=== PATIENT | female | born 1980 | race Caucasian/White ===

== ENCOUNTER 2023-04-13 13:55 | Emergency (ER) | payer OTHER, SELFPAY ==
[2023-04-13] VITALS (20 sets, daily range): BP systolic 84–156; BP diastolic 15–83; BMI 34.1
--- NOTE | 2023-04-13 14:45 | ED.GENMED ---
History of Present Illness
<Jennifer Melchor MACHINE FOLDER - Last Filed: 04/15/23 15:23>
General
Chief Complaint: Substance Abuse
Source: patient
Exam Limitations: none
Time Seen by Provider: 04/13/23 14:11
Nursing documentation reviewed up to this point in time: agreed with
Travel History
Have you had any contact with someone who has COVID-19?: No
Do you have any symptoms of coronavirus? Fever > 100 degrees, chills, cough, shortness of breath, sore throat, loss of taste or smell, muscle aches, or headache?: No
History of Present Illness
History of Present Illness:
42-year-old female with history of HTN, hep C, depression, substance abuse presents stating she wants inpatient care for drug rehab. Her drug of choice is fentanyl, she denies any other drug or alcohol use. She states after being clean for a year
her boyfriend just got out of [facility] and provided her with fentanyl. She injected 1 bag at 9 AM, she also used yesterday and states prior to that she was clean for a year.
She states she goes to the clinic for methadone 150 mg daily, she missed her appointment today because her ride could not make it on time so she missed today's dose and tomorrow's dose as they are closed on Sundays and usually gives that dose today
for tomorrow.
She has generalized body aches. Denies chest pain or trouble breathing. Denies abdominal pain. She states in the past week she has been urinating more frequently at night. Denies dysuria.
Past History
<Jennifer Melchor MACHINE FOLDER - Last Filed: 04/15/23 15:23>
Past History
ED Past Medical History: Psychiatric (History of drug abuse/ methadone maintenance program) and Other (Hepatitis C)
ED Past Surgical History:
Social History
Tobacco: Smoker
Alcohol: None
Drug: IVDA
Personal: Single
Living: with family (she and 10 yo daughter live with her boyfriend's mother, boyfriend's sister just moved in 1 month ago, disrupting the home. Boyfriend just out of long term, provided her Fentanyl)
Employment: Employed
Family History
Family History: Other (Noncontributory)
Review of Systems
<Jennifer Melchor, MACHINE FOLDER - Last Filed: 04/15/23 15:23>
Review of Systems
Allergies reviewed?: Yes
All Other Systems: ROS reviewed and negative except as documented in HPI and ROS
Constitutional: Denies fever or chills
EENT: Denies sore throat or runny nose
Respiratory: Denies trouble breathing
Cardiac: Denies chest pain or diaphoresis
ABD/GI: Denies abdominal pain, nausea, vomiting or diarrhea
: Reports frequency; Denies dysuria, difficulty voiding or urgency
Musculoskeletal: Reports other (General body aches)
Skin: Reports no symptoms
Neurological: Reports no symptoms
Psychiatric: Reports depression and anxiety; Denies suicidal
Phy Exam
<Jennifer Melchor, MACHINE FOLDER - Last Filed: 04/15/23 15:23>
Physical Exam
Physical Exam:
GENERAL: No acute distress. A&Ox3.
CONSTITUTIONAL: Afebrile.
EYES: PERRL, conjunctivae normal
Neck: Supple
ENMT: moist mucus membranes, Pharynx nl
RESPIRATORY: Regular respirations, nonlabored, lungs clear.
CARDIOVASCULAR: Regular rate and rhythm, no murmurs, no rubs.
GI: Soft, nontender, normal BS
MUSCULOSKELETAL: Moves with ease. Well perfused.
SKIN: Warm, dry, pink
PSYCH: Tearful mood and affect. Well kept, interactive and appropriate
NEUROLOGIC: Awake, alert and oriented. No focal neurological deficits
Scores
<Jennifer Melchor, MACHINE FOLDER - Last Filed: 04/15/23 15:23>
COW Clinical Opiate Withdrawal Scale
Resting Pulse Rate: 80 or below
Sweating-over past 30min not from room temp or activity: No report of chills or flushing
Restlessness-observation during assessment: Able to sit still
Pupil Size: Pupils pinned or normal size for room light
Bone or Joint Aches: Mild diffuse discomfort
Runny Nose or Tearing-not accounted for by cold/allergies: Not present
GI Upset-over last 30min: No GI Symptoms
Tremor-observation of outstretched hands: No tremor
Yawning-observation during assessment: No yawning
Anxiety or Irritability: None
Gooseflesh Skin: Skin is smooth
Score: 1
Withdrawal Severity: Minimal Withdrawal
<Rachelle Mccain, DO - Last Filed: 04/14/23 22:46>
COW Clinical Opiate Withdrawal Scale
Score: 1
Withdrawal Severity: Minimal Withdrawal
<Thanh Weiss, DO - Last Filed: 04/14/23 13:54>
COW Clinical Opiate Withdrawal Scale
Score: 1
Withdrawal Severity: Minimal Withdrawal
Course
<Jennifer Melchor, MACHINE FOLDER - Last Filed: 04/15/23 15:23>
Orders/Labs/Results
Orders:
Orders
04/13/23 14:43
Test Result ONCE
04/13/23 14:44
0.9% Sodium Chloride 1000 ml [Nss] 1,000 ml IV BOLUS
04/13/23 14:54
Complete Blood Count/With Diff Urgent
Comprehensive Metabolic Panel Urgent
Fentanyl, Urine Urgent
HCG, Serum Qualitative Screen Urgent
[place] Urgent
Urinalysis Reflex To Culture Urgent
Date Specimen was Collected: 04/13/23
Time Specimen was Collected: 14:50
Urine Drug Abuse Screen Urgent
Date Specimen was Collected: 04/13/23
Time Specimen was Collected: 14:50
Urine Microscopic Reflex Cult Urgent
Urine Culture Urgent
[facility] Source: U
Specimen Description:
Date Specimen was Collected: 04/13/23
Time Specimen was Collected: 14:50
04/14/23 Breakfast
Regular
At Your Request: Full Participation
Does patient need a safe tray?: No
04/14/23 08:00
Methadone HCl [Methadone 100 mg/10 ml] 150 mg PO DAILY
Abnormal Lab Results
04/13/23
14:54
Abs Immat Gran (auto) 0.1 H 10^3/uL
(0-0.05)
Immature Gran % 0.7 H %
(0-0.5)
Lymphocytes % 18.8 L %
(20.5-51.1)
Sodium 133 L mmol/L
(135-145)
Glucose 101 H mg/dl
(70-99)
AST 74 H U/L
(14-36)
ALT 45 H U/L
(0-35)
Alkaline Phosphatase 235 H U/L
(38-126)
Ur Occult Blood Reflex 1+ A
(Negative)
Leukocyte Esterase Rfl Trace A
(Negative)
Urine RBC 3-6 A /HPF
(0-2)
Urine Bacteria (Reflex) Moderate A
(Negative)
Urine Methadone Screen Positive H
(Negative)
Urine Fentanyl Screen Positive H
(Negative)
U Benzodiazepines Scrn Positive H
(Negative)
[place] < 0.2 L mmol/L
(0.6-1.2)
Urine Cocaine Screen Positive H
(Negative)
04/13/23 14:54
04/13/23 14:54
Vital Signs
Initial and Last Documented VS:
Initial Vital Signs
Temp Pulse Resp BP Pulse Ox
98.2 F 56 16 117/72 99
04/13/23 14:00 04/13/23 14:00 04/13/23 14:00 04/13/23 14:00 04/13/23 14:00
Last Documented Vital Signs
Temp Pulse Resp BP Pulse Ox
98.2 F 46 0 137/78 95
04/13/23 14:00 04/14/23 13:15 04/13/23 15:03 04/14/23 13:00 04/14/23 00:30
Field Producer consulted with Physician
Field Producer consulted with physician?: Yes
Name of Physician Consulted: Maverick
<Rachelle Mccain, DO - Last Filed: 04/14/23 22:46>
Orders/Labs/Results
Orders:
Orders
04/13/23 14:43
Test Result ONCE
04/13/23 14:44
0.9% Sodium Chloride 1000 ml [Nss] 1,000 ml IV BOLUS
04/13/23 14:54
Complete Blood Count/With Diff Urgent
Comprehensive Metabolic Panel Urgent
Fentanyl, Urine Urgent
HCG, Serum Qualitative Screen Urgent
[place] Urgent
Urinalysis Reflex To Culture Urgent
Date Specimen was Collected: 04/13/23
Time Specimen was Collected: 14:50
Urine Drug Abuse Screen Urgent
Date Specimen was Collected: 04/13/23
Time Specimen was Collected: 14:50
Urine Microscopic Reflex Cult Urgent
Urine Culture Urgent
[facility]ILESH Source: U
Specimen Description:
Date Specimen was Collected: 04/13/23
Time Specimen was Collected: 14:50
04/14/23 Breakfast
Regular
At Your Request: Full Participation
Does patient need a safe tray?: No
04/14/23 08:00
Methadone HCl [Methadone 100 mg/10 ml] 150 mg PO DAILY
Abnormal Lab Results
04/13/23
14:54
Abs Immat Gran (auto) 0.1 H 10^3/uL
(0-0.05)
Immature Gran % 0.7 H %
(0-0.5)
Lymphocytes % 18.8 L %
(20.5-51.1)
Sodium 133 L mmol/L
(135-145)
Glucose 101 H mg/dl
(70-99)
AST 74 H U/L
(14-36)
ALT 45 H U/L
(0-35)
Alkaline Phosphatase 235 H U/L
(38-126)
Ur Occult Blood Reflex 1+ A
(Negative)
Leukocyte Esterase Rfl Trace A
(Negative)
Urine RBC 3-6 A /HPF
(0-2)
Urine Bacteria (Reflex) Moderate A
(Negative)
Urine Methadone Screen Positive H
(Negative)
Urine Fentanyl Screen Positive H
(Negative)
U Benzodiazepines Scrn Positive H
(Negative)
[place] < 0.2 L mmol/L
(0.6-1.2)
Urine Cocaine Screen Positive H
(Negative)
04/13/23 14:54
04/13/23 14:54
Vital Signs
Initial and Last Documented VS:
Initial Vital Signs
Temp Pulse Resp BP Pulse Ox
98.2 F 56 16 117/72 99
04/13/23 14:00 04/13/23 14:00 04/13/23 14:00 04/13/23 14:00 04/13/23 14:00
Last Documented Vital Signs
Temp Pulse Resp BP Pulse Ox
98.2 F 46 0 137/78 95
04/13/23 14:00 04/14/23 13:15 04/13/23 15:03 04/14/23 13:00 04/14/23 00:30
<Thanh Weiss, DO - Last Filed: 04/14/23 13:54>
Orders/Labs/Results
Orders:
Orders
04/13/23 14:43
Test Result ONCE
04/13/23 14:44
0.9% Sodium Chloride 1000 ml [Nss] 1,000 ml IV BOLUS
04/13/23 14:54
Complete Blood Count/With Diff Urgent
Comprehensive Metabolic Panel Urgent
Fentanyl, Urine Urgent
HCG, Serum Qualitative Screen Urgent
[place] Urgent
Urinalysis Reflex To Culture Urgent
Date Specimen was Collected: 04/13/23
Time Specimen was Collected: 14:50
Urine Drug Abuse Screen Urgent
Date Specimen was Collected: 04/13/23
Time Specimen was Collected: 14:50
Urine Microscopic Reflex Cult Urgent
Urine Culture Urgent
NILESH Source: U
Specimen Description:
Date Specimen was Collected: 04/13/23
Time Specimen was Collected: 14:50
04/14/23 Breakfast
Regular
At Your Request: Full Participation
Does patient need a safe tray?: No
04/14/23 08:00
Methadone HCl [Methadone 100 mg/10 ml] 150 mg PO DAILY
Abnormal Lab Results
04/13/23
14:54
Abs Immat Gran (auto) 0.1 H 10^3/uL
(0-0.05)
Immature Gran % 0.7 H %
(0-0.5)
Lymphocytes % 18.8 L %
(20.5-51.1)
Sodium 133 L mmol/L
(135-145)
Glucose 101 H mg/dl
(70-99)
AST 74 H U/L
(14-36)
ALT 45 H U/L
(0-35)
Alkaline Phosphatase 235 H U/L
(38-126)
Ur Occult Blood Reflex 1+ A
(Negative)
Leukocyte Esterase Rfl Trace A
(Negative)
Urine RBC 3-6 A /HPF
(0-2)
Urine Bacteria (Reflex) Moderate A
(Negative)
Urine Methadone Screen Positive H
(Negative)
Urine Fentanyl Screen Positive H
(Negative)
U Benzodiazepines Scrn Positive H
(Negative)
[place] < 0.2 L mmol/L
(0.6-1.2)
Urine Cocaine Screen Positive H
(Negative)
04/13/23 14:54
04/13/23 14:54
Vital Signs
Initial and Last Documented VS:
Initial Vital Signs
Temp Pulse Resp BP Pulse Ox
98.2 F 56 16 117/72 99
04/13/23 14:00 04/13/23 14:00 04/13/23 14:00 04/13/23 14:00 04/13/23 14:00
Last Documented Vital Signs
Temp Pulse Resp BP Pulse Ox
98.2 F 46 0 137/78 95
04/13/23 14:00 04/14/23 13:15 04/13/23 15:03 04/14/23 13:00 04/14/23 00:30
<Jennifer Melchor MACHINE FOLDER - Last Filed: 04/15/23 15:23>
MDM/Problems Addressed
Differential Diagnosis Includes:
opioid withdrawal, need for Methadone
MDM/Problems Addressed:
42-year-old female with history of HTN, hep C, depression, substance abuse presents stating she wants inpatient care for drug rehab. Her drug of choice is fentanyl, she denies any other drug or alcohol use. She states after being clean for a year
her boyfriend just got out of [facility] and provided her with fentanyl. She injected 1 bag at 9 AM, she also used yesterday and states prior to that she was clean for a year.
She states she goes to the clinic for methadone 150 mg daily, she missed her appointment today because her ride could not make it on time so she missed today's dose and tomorrow's dose as they are closed on Sundays and usually gives that dose today
for tomorrow.
She has generalized body aches. Denies chest pain or trouble breathing. Denies abdominal pain. She states in the past week she has been urinating more frequently at night. Denies dysuria.She has generalized body aches. Denies chest pain or
trouble breathing. Denies abdominal pain. She states in the past week she has been urinating more frequently at night. Denies dysuria.
NAD, tearful
COWS score 1
In reviewing old records her last visit here was 09/18 to 10/19/2021 for cellulitis. At that time she was discharged on methadone 125 mg p.o. daily
Awaiting callback from [facility]
04/13/2023 1559 PM
CBC normal
CMP: mild elevation of liver enzymes
hCG negative
UA: No sign of infection
[place] level less than 0.2, less than therapeutic
04/13/2023 2042 PM
The [facility] personnel just called back and will be in to evaluate patient.
Patient remains somnolent but arousable, stable
04/13/2023 2148 PM
Edin from the [facility] is here speaking with the patient.
Case discussed with Dr. Mccain who will assume care from this point.
No indication of opioid withdrawal
<Thanh Weiss DO - Last Filed: 04/14/23 13:54>
*Critical Care Note
Total Time (30-74mins, 75-104mins- exclusive of procedures): Not Applicable
<Thanh Weiss DO - Last Filed: 04/14/23 13:54>
Update Note
Update Note:
Patient seen by Dontae plummer. Patient seen by case management. Living place arranged by case management. Dontae jimenezs to follow and place in rehab
ED Attending Note
<Jennifer Melchor MACHINE FOLDER - Last Filed: 04/15/23 15:23>
-
Portions of this chart may have been created with voice recognition software.� Occasional wrong word or��sound alike� substitutions may have occurred due to the inherent limitations of voice recognition software.
<Rachelle Mccain DO - Last Filed: 04/14/23 22:46>
ED Attending Note
I performed the substantive portion of visit, reviewed & personally made and approve the management plan that is documented in note by myself or VIRGIL.: Yes
ED Attending Note:
42-year-old woman with longstanding history of opioid use disorder, maintained on methadone 150 mg daily.
She admits to recent relapse, IV fentanyl use, partying with an old acquaintance and missed her methadone dose this morning, April 13.
She presents voluntarily requesting inpatient detox treatment and has been interviewed by [facility] it disaster recovery manager.
[facility] it disaster recovery manager has calls out to several inpatient recovery centers and plans to touch base with their admissions departments Saturday.
Patient agreeable to remain in the ED and will plan for her usual morning methadone dose, 150 mg on Saturday morning.
It is currently after 10 PM April 13.
No evidence of opioid withdrawal currently. No need for methadone dose now.
Will continue to observe in the ED.
Discharge Plan
Departure
Patient Disposition: Home (Routine Discharge)
Date of Disposition: 04/14/23
Time of Disposition: 06:09
Patient with high blood pressure during this ER visit?: No
Discharge Problem:
Opioid use disorder, severe, on maintenance therapy, OUD with recent relapse
Instructions: Drug Misuse and Addiction (DC)
Prescriptions:
No Action
hydrochlorothiazide 12.5 mg Tablet
12.5 mg PO DAILY
methadone [Methadose] 100 MG/10 ML concentrate
125 mg PO DAILY
Rx Instructions:
09/18/21: dose confirmation 125 mg with [facility] [phone] [place].
Saw patient 09/16 for 125 mg dose, then clinic is closed on Sundays so a take home dose of 125 mg was given to patient.
amoxicillin-pot clavulanate 875-125 mg tablet
1 tab PO BID 12 Days Qty: 23 0RF
Rx Instructions:
first dose evening 09/20/21
Referrals:
Eduardo Croft MD [Family Provider] -
Interventions
Interventions:
*Risk Screen - Suicide Last Done: 04/13/23 14:00
*General Assessment Last Done: 04/13/23 14:00
*Neglect/Abuse Screening Last Done: 04/13/23 14:00
ED- Fall Risk Assessment Last Done: 04/13/23 14:00
*ED COVID-19 Vaccine History Last Done: 04/13/23 14:00
*Nursing Disposition Last Done: 04/14/23 14:01
ED-Psychological Assessment Last Done: 04/13/23 15:57
Discharge Date and Time
Discharge Date/Time: 04/14/23 14:06
[2023-04-13] MEDS: NSS 1000 IV (14:59)
[2023-04-13 15:21] LABS: Red Blood Cell Count 4.24 10^6/uL (4.20-5.40); White Blood Cell Count 8.1 10^3/uL (4.8-10.8)
[2023-04-13 15:22] LABS: % Basophils 0.4 % (0-2); % Eosinophils 1.1 % (0-6); % Immature Granulocytes 0.7 % (0-0.5); % Lymphocytes 18.8 % (20.5-51.1); % Monocytes 4.5 % (1.7-9.3); % Neutrophils 74.5 % (42.2-75.2); Absolute Eosinophils 0.1 10^3/uL (0-0.7); Absolute Immature Granulocytes 0.1 10^3/uL (0-0.05); Absolute Lymphocytes 1.5 10^3/uL (1.2-3.4); Absolute Monocytes 0.4 10^3/uL (0.1-0.6); Absolute Neutrophils 6.1 10^3/uL (1.4-6.5); Hematocrit 37.8 % (37.0-47.0); Hemoglobin 13.1 g/dL (12.0-16.0); Mean Corp Hgb Conc. 34.7 g/dL (33.0-37.0); Mean Corpuscular Hgb 30.9 pg (27.0-31.0); Mean Corpuscular Volume 89.2 fL (81.0-99.0); Mean Platelet Volume 9.7 fL (7.4-10.4); Nucleated Red Blood Cells % 0 %; Platelet Count 247 10^3/uL (130-400); Red Cell Dist. Width 12.8 % (11.5-14.5)
[2023-04-13 15:26] LABS: Urine Albumin Negative (Neg - Trace); Urine Bilirubin Negative (Negative); Urine Character Slightly Cloudy (Clear); Urine Color Yellow; Urine Glucose Negative (Negative); Urine Ketone Negative (Negative); Urine Leukocyte Trace (Negative); Urine Nitrite Negative (Negative); Urine Occult Blood 1+ (Negative); Urine Specific Gravity 1.015 (<1.030); Urine Urobilinogen Negative (Neg - 1+); Urine pH 6.5 (5.0-9.0)
[2023-04-13 15:34] LABS: ALT (SGPT) 45 U/L (0-35); AST (SGOT) 74 U/L (14-36); Albumin 3.9 g/dl (3.5-5.0); Alkaline Phosphatase 235 U/L (38-126); Blood Urea Nitrogen 14 mg/dl (7-17); Calcium 8.5 mg/dl (8.4-10.2); Carbon Dioxide 27 mmol/L (22-30); Chloride 102 mmol/L (98-107); Estimated Creatinine Clearance 121 ml/min; Glucose 101 mg/dl (70-99); Lithium < 0.2 mmol/L (0.6-1.2); Potassium 4.9 mmol/L (3.5-5.1); Sodium 133 mmol/L (135-145); Total Bilirubin 0.7 mg/dl (0.2-1.3); Total Protein 7.7 g/dl (6.3-8.2); eGFR > 60.00
[2023-04-13 15:38] LABS: HCG, Serum Qualitative Screen Negative
[2023-04-13 15:52] LABS: Urine Bacteria Moderate (Negative); Urine Squamous Cell >30 /LPF (Few); Urine White Cell 0-2 /HPF (0-5)
[2023-04-13 17:39] LABS: Benzodiazepines Positive (Negative); Methadone Positive (Negative)
[2023-04-13 17:40] LABS: Amphetamines Negative (Negative); Barbiturates Negative (Negative); Buprenorphine Negative (Negative); Cocaine Positive (Negative); Marijuana Negative (Negative); Methamphetamines Negative (Negative); Opiates Negative (Negative); Phencyclidine Negative (Negative); Tricyclic Antidepressants Negative (Negative)
[2023-04-13 18:08] LABS: Fentanyl, Urine Positive (Negative)
--- NOTE | 2023-04-13 19:00 | EDRN ---
report received, patient is sleeping and we are waiting on [facility] to call back
--- NOTE | 2023-04-13 20:52 | EDRN ---
[facility] is suppose to come in and see patient to work on placement, patient is sleeping
--- NOTE | 2023-04-13 21:51 | EDRN ---
[facility] is at bedside working on assessment
--- NOTE | 2023-04-13 22:15 | EDRN ---
Patient electrical control assembler leonardo asking to use restroom and about methadone dose, as of right now will not be giving methadone does per provider, will continue to monitor
--- NOTE | 2023-04-13 23:53 | EDRN ---
Patient provided with sandwich, [facility] will attempt to find placement in the morning, nothing for tonight, patient aware
[2023-04-14] VITALS (26 sets, daily range): BP systolic 105–151; BP diastolic 58–94
--- NOTE | 2023-04-14 02:40 | EDRN ---
Patient provided with another cup of hot tea, resting comfortably,vss
--- NOTE | 2023-04-14 10:23 | CM ---
Addendum entered by Gisel Sanchez RN 04/14/23 13:55:
[facility] is able to assist with temporary housing at the [facility]. CM will provide Lyft ride.
Addendum entered by Gisel Sanchez RN 04/14/23 13:01:
TIA spoke with Lalit from [facility] with demographics. Lalit will call back with possible assistance with housing.
Addendum entered by Gisel Sanchez RN 04/14/23 12:12:
CM received call from Lalit at [facility]. He will call CM back with further information.
Addendum entered by Gisel Sanchez RN 04/14/23 10:24:
Patient does not have a place to stay tonight. CM called [facility] to assist with temporary housing.
Original Note:
TIA spoke with Edin from [facility]. He stated that he will have difficulty placing patient. Patient needs to follow up with her Methadone Clinic in [place] to confirm dose. She will follow up with the following resources tomorrow for placement:
[facility]
[phone]
[facility]
[phone]
[place]
[phone]
[facility]
[phone]
[2023-04-14] MEDS: METHADONE 100 MG/10 ML 150 MG PO (10:43)
--- NOTE | 2023-04-15 16:12 | CM ---
ED Consult to CM to contact Edin from [facility] to assist with referral paperwork for this patient, related to ED visit 04/13-04/14.
Spoke with [facility] (cell [phone], fax [phone]); this patient was accepted by [facility], [facility] and they are requesting documentation as to whether patient received Methadone on Sun 04/14 while she was here.
Read to Edin the ED Doc notes stating Methadone ordered. Sent clinicals including demographics, ED Physician notes and Methadone order to [facility] fax [phone] - sent via [employer]ax.
== END 2023-04-14 14:06 | disposition home or self-care (01) ==
LOC: EMR 13:55
PROVIDERS: Registered Nurse; EMERGENCY PHYSICIAN Emergency Medicine; FAMILY PHYSICIAN Internal Medicine
DX: F11.23 Opioid dependence with withdrawal (principal); F17.200 Nicotine dependence, unspecified, uncomplicated; I10 Essential (primary) hypertension; Z86.19 Personal history of other infectious and parasitic diseases
CPT/HCPCS: 99283; 80053; 80178; 80306; 80307; 81003; 81015; 84703; 85025; 87086

== ENCOUNTER 2023-12-28 13:04 | Emergency (ER) | payer OTHER, SELFPAY ==
[2023-12-28 13:06] VITALS: BP 135/88
--- NOTE | 2023-12-28 13:14 | EDRN ---
Pt states she has a blister on cuticle of L thumb w/ redness of proximal portion of thumb. Pt states it started 2 days ago. Pain is 8/10 for thumb. Pain is also radiating into her L hand now.
[2023-12-28 13:16] VITALS: BMI 29.6
--- NOTE | 2023-12-28 13:48 | ED.GENMED ---
History of Present Illness
<Bailey Crooks PA-C - Last Filed: 12/28/23 19:58>
General
Chief Complaint: Skin Problem
Source: patient
Exam Limitations: none
Time Seen by Provider: 12/28/23 13:10
Nursing documentation reviewed up to this point in time: agreed with
History of Present Illness
History of Present Illness:
Patient is a 43-year-old female with history hypertension, history of substance abuse presenting to the emergency department for evaluation of infection of left thumb. Patient states that she noticed a blister around her left cuticle 2 days ago.
Pain and blister worsened over the past 2 days. Yesterday patient reports that she poked the blister yesterday causing drainage.Blister has been draining since yesterday per patient. However�pain has begun to worsen and patient feels she noticed
redness spreading down her left thumb towards her wrist.
Patient denies any systemic fever, chills, nausea/vomiting, weakness.
Patient does report a history of IV drug use�although she has not used in the past year.
Past History
<APRIL Wilkerson Last Filed: 12/28/23 19:58>
Past History
ED Past Medical History: Psychiatric (History of drug abuse/ methadone maintenance program) and Other (Hepatitis C)
ED Past Surgical History:
Social History
Tobacco: Smoker
Alcohol: None
Drug: IVDA
Personal: Single
Living: with family (she and 10 yo daughter live with her boyfriend's mother, boyfriend's sister just moved in 1 month ago, disrupting the home. Boyfriend just out of detention, provided her Fentanyl)
Employment: Employed
Family History
Family History: Other (Noncontributory)
Review of Systems
<APRIL Wilkerson Last Filed: 12/28/23 19:58>
Review of Systems
Allergies reviewed?: Yes
All Other Systems: ROS reviewed and negative except as documented in HPI and ROS
Phy Exam
<Bailey Crooks PA-C - Last Filed: 12/28/23 19:58>
Physical Exam
Physical Exam:
Vitals: Patient's vital signs are stable. Afebrile. Nontoxic appearing
General: Patient is well appearing, no acute distress
Skin: Circumferential erythema of left thumb with erythema and mild streaking extending down dorsal aspect of left thumb. Clear drainage with very minimal purulent drainage. No fluctuance or erythema of pulp of left thumb.
Head: Normocephalic, atraumatic
Throat: Protecting airway
Neck: Normal ROM, no cervical spine tenderness
Cardiac: Regular rate
Pulm: No apparent respiratory distress
Abdomen: Nondistended
Extremities: Full range of motion in all digits and left hand including extension/flexion of left thumb. Palpable radial pulse left upper extremity. Capillary refill less than 2 seconds in left thumb.
Neuro: Grossly intact
Psychiatric: Normal affect.
Course
<Bailey Crooks PA-C - Last Filed: 12/28/23 19:58>
Orders/Labs/Results
Orders:
Orders
12/28/23 13:42
Acetaminophen [Tylenol] 650 mg PO NOW STA
12/28/23 14:28
Vancomycin [Vancocin] 2,000 mg 0.9% Sodium Chloride 500 ml [Nss] 500 ml IV NOW
12/28/23 14:39
Wound Culture [Wound/Abscess/Other Culture] Urgent
NILESH Source: Thumb
Specimen Description: Left
Date Specimen was Collected: 12/28/23
Time Specimen was Collected: 14:30
Vital Signs
Initial and Last Documented VS:
Initial Vital Signs
Temp Pulse Resp BP Pulse Ox
97.9 F 57 18 135/88 98
12/28/23 13:06 12/28/23 13:06 12/28/23 13:06 12/28/23 13:06 12/28/23 13:06
Last Documented Vital Signs
Temp Pulse Resp BP Pulse Ox
97.9 F 51 14 119/76 96
12/28/23 13:06 12/28/23 15:57 12/28/23 15:57 12/28/23 15:57 12/28/23 15:57
<Catalina Jenkins MD - Last Filed: 12/28/23 14:25>
Orders/Labs/Results
Orders:
Orders
12/28/23 13:42
Acetaminophen [Tylenol] 650 mg PO NOW STA
12/28/23 14:28
Vancomycin [Vancocin] 2,000 mg 0.9% Sodium Chloride 500 ml [Nss] 500 ml IV NOW
12/28/23 14:39
Wound Culture [Wound/Abscess/Other Culture] Urgent
NILESH Source: Thumb
Specimen Description: Left
Date Specimen was Collected: 12/28/23
Time Specimen was Collected: 14:30
Vital Signs
Initial and Last Documented VS:
Initial Vital Signs
Temp Pulse Resp BP Pulse Ox
97.9 F 57 18 135/88 98
12/28/23 13:06 12/28/23 13:06 12/28/23 13:06 12/28/23 13:06 12/28/23 13:06
Last Documented Vital Signs
Temp Pulse Resp BP Pulse Ox
97.9 F 51 14 119/76 96
12/28/23 13:06 12/28/23 15:57 12/28/23 15:57 12/28/23 15:57 12/28/23 15:57
<Bailey Crooks PA-C - Last Filed: 12/28/23 19:58>
MDM/Problems Addressed
Differential Diagnosis Includes:
Not limited to: Paronychia, cellulitis, felon, tenosynovitis
MDM/Problems Addressed:
43-year-old female with history of IV drug use presenting with cellulitis of left thumb. No fever, chills, vomiting. Vital signs are stable. Patient is afebrile. Physical exam as above. Patient nontoxic-appearing. There is no evidence of
extension to pulp of left finger indicating a felon. No evidence of tenosynovitis at this time. No clear area of fluctuance at this time to justify an incision and drainage. Wound is actively draining clear fluid. Given significant cellulitis
and history of IV drug use�will give patient dose of IV vancomycin in emergency department. No indication for labs or imaging at this time. Do not feel admission is warranted at this time. Plan to discharge with oral antibiotic to cover MRSA.
Return precautions discussed at length including signs of worsening infection.
Update: When patient was approximate two thirds through her dose of IV vancomycin IV became dislodged. Patient refused new IV placement and to continue IV antibiotics. Risk of worsening infection without completion of IV antibiotic dose was
discussed with patient who understands. She is requesting discharge at this time with oral antibiotics. Patient discharged with course of doxycycline.
Chronic conditions affecting care:
History of IV drug use
Acute Exacerbation and/or Progression of Chronic Illness:
N/A
<Bailey Crooks PA-C - Last Filed: 12/28/23 19:58>
*Pulse Oximetry
Patient hypoxic: no
*EKG
Interpreted by ED Provider?: NA
*Campus Ambassador Interpretation
Rate: Campus Ambassador- N/A
*Critical Care Note
Total Time (30-74mins, 75-104mins- exclusive of procedures): Not Applicable
ED Attending Note
<Bailey Crooks PA-C - Last Filed: 12/28/23 19:58>
-
Portions of this chart may have been created with voice recognition software.� Occasional wrong word or��sound alike� substitutions may have occurred due to the inherent limitations of voice recognition software.
<Catalina Jenkins MD - Last Filed: 12/28/23 14:25>
ED Attending Note
Patient seen and examined by attending physician: Yes
I performed the substantive portion of visit, reviewed & personally made and approve the management plan that is documented in note by myself or VIRGIL.: Yes
ED Attending Note:
Patient appears nontoxic and well. Patient has strong pulses in left upper extremity. Distal left thumb is circumferentially erythematous and warm. There is mild streaking erythema up along the dorsal aspect to the base of the left thumb. Skin
appears somewhat blistered on dorsal aspect of distal left thumb with drainage of clear fluid and a very small amount of purulent discharge. However, compartments of left hand are soft. Patient able to fully extend and flex all fingers of left
hand. There is no sign of tenosynovitis at this time. Patient will be given 1 dose of IV antibiotics and sent home with oral antibiotics that have MRSA coverage. There is no erythema or swelling of wrist.
Discharge Plan
Departure
Patient Disposition: Home (Routine Discharge)
Date of Disposition: 12/28/23
Time of Disposition: 16:52
Patient with high blood pressure during this ER visit?: No
Condition: Good
Covid-19: Not Applicable
Discharge Problem:
Cellulitis of left thumb
Instructions: Cellulitis (Skin Infection), Adult (DC)
Prescriptions:
New
doxycycline hyclate 100 mg tablet
100 mg PO BID 7 Days Qty: 14 0RF
No Action
methadone [Methadose] 100 MG/10 ML concentrate
155 mg PO DAILY
Patient Comments:
called [facility] to adonay dose @[phone]/27/23 patient has take home doses
quetiapine [Seroquel] 200 mg Tablet
200 mg PO HS
lithium carbonate 300 mg Capsule
300 mg PO BID
paroxetine HCl [Paxil] 30 mg Tablet
60 mg PO DAILY
buspirone [BuSpar] 10 mg Tablet
20 mg PO BID
Referrals:
Eduardo Croft MD [Family Provider] -
Activity Restrictions/Additional Instructions:
RETURN TO THE EMERGENCY DEPARTMENT WITH ANY FEVER, CHILLS, INTRACTABLE NAUSEA/VOMITING, OR SIGNS OF WORSENING INFECTION INCLUDING SPREADING REDNESS TOWARD WRIST, SIGNIFICANT SWELLING OF THUMB, INTRACTABLE PAIN, OR OTHER SIGNS OF WORSENING INFECTION
-A Prescription for antibiotic has been sent to your pharmacy. You should take this twice a day for the next week.
-You should continue to soak your thumb in warm soaks multiple times throughout the day. You can take Tylenol/Motrin as needed for pain.
Monitor your symptoms closely return to the emergency department with any acute worsening/new symptoms or signs of worsening infection
Interventions
Interventions:
*Risk Screen - Suicide Last Done: 12/28/23 13:16
*General Assessment Last Done: 12/28/23 13:06
*Neglect/Abuse Screening Last Done: 12/28/23 13:16
ED- Fall Risk Assessment Last Done: 12/28/23 13:17
*ED COVID-19 Vaccine History Last Done: 12/28/23 13:16
*Nursing Disposition Last Done: 12/28/23 17:10
ED-Skin Assessment Last Done: 12/28/23 13:19
Discharge Date and Time
Discharge Date/Time: 12/28/23 17:10
Print Language: SLOVENIAN
[2023-12-28] MEDS: TYLENOL 650 MG PO (14:08)
[2023-12-28 14:11] VITALS: BP 97/72
--- NOTE | 2023-12-28 14:13 | EDRN ---
Dr. Jenkins and Brook SUGGS in room w/ pt at this time.
[2023-12-28] MEDS: VANCOCIN 540 MG IV (14:47)
[2023-12-28 15:57] VITALS: BP 119/76
--- NOTE | 2023-12-28 16:40 | EDRN ---
Pt's IV fell out at this time after ambulating to BR w/ 372 mL of the Vancomycin (540mL) infused.
--- NOTE | 2023-12-28 17:02 | EDRN ---
Post IV coming out pt was refusing another IV access and this RN just checked w/ pt and pt is still refusing to have another IV access to complete the full dose of vancomycin ordered at this time. Pt requesting to be discharged at this time. M.
Daksha SUGGS aware of pt's wishes and preparing pt's discharge.
== END 2023-12-28 17:10 | disposition home or self-care (01) ==
LOC: EMR 13:04
PROVIDERS: EMERGENCY PHYSICIAN Emergency Medicine; FAMILY PHYSICIAN Internal Medicine
DX: L03.012 Cellulitis of left finger (principal); I10 Essential (primary) hypertension; F17.200 Nicotine dependence, unspecified, uncomplicated
CPT/HCPCS: 99283; 96365; 96366; 87070; 87147; 87186; 87205

== ENCOUNTER 2024-01-19 18:13 | Observation (INO) | payer OTHER, SELFPAY ==
[2024-01-19] VITALS (18 sets, daily range): BP systolic 75–145; BP diastolic 58–80; PULSE 54–69; BMI 31.4
[2024-01-19 11:52] LABS: % Basophils 0.3 % (0-2); % Eosinophils 1.5 % (0-6); % Immature Granulocytes 0.5 % (0-0.5); % Lymphocytes 21.2 % (20.5-51.1); % Monocytes 5.4 % (1.7-9.3); % Neutrophils 71.1 % (42.2-75.2); Absolute Eosinophils 0.2 10^3/uL (0-0.7); Absolute Immature Granulocytes 0.1 10^3/uL (0-0.05); Absolute Lymphocytes 2.3 10^3/uL (1.2-3.4); Absolute Monocytes 0.6 10^3/uL (0.1-0.6); Absolute Neutrophils 7.8 10^3/uL (1.4-6.5); Hematocrit 34.6 % (37.0-47.0); Hemoglobin 11.9 g/dL (12.0-16.0); Mean Corp Hgb Conc. 34.4 g/dL (33.0-37.0); Mean Corpuscular Hgb 31.6 pg (27.0-31.0); Mean Platelet Volume 9.6 fL (7.4-10.4); Nucleated Red Blood Cells % 0 %; Platelet Count 217 10^3/uL (130-400); Red Blood Cell Count 3.76 10^6/uL (4.20-5.40); Red Cell Dist. Width 13.2 % (11.5-14.5)
[2024-01-19 12:42] LABS: ALT (SGPT) 24 U/L (0-35); AST (SGOT) 34 U/L (14-36); Albumin 3.6 g/dl (3.5-5.0); Alkaline Phosphatase 169 U/L (38-126); Blood Urea Nitrogen 12 mg/dl (7-17); Calcium 8.7 mg/dl (8.4-10.2); Carbon Dioxide 31 mmol/L (22-30); Chloride 105 mmol/L (98-107); Glucose 112 mg/dl (70-99); Magnesium 2.2 mg/dl (1.6-2.3); Potassium 3.5 mmol/L (3.5-5.1); Sodium 141 mmol/L (135-145); Total Bilirubin 0.4 mg/dl (0.2-1.3); Total Protein 6.7 g/dl (6.3-8.2); eGFR > 60.00
--- NOTE | 2024-01-19 13:04 | ED.GENMED ---
History of Present Illness
General
Chief Complaint: Fainting/Passed Out
Source: patient and spouse
Exam Limitations: none
Time Seen by Provider: 01/19/24 11:00
Nursing documentation reviewed up to this point in time: agreed with
History of Present Illness
History of Present Illness:
43 yo female with h/o on Methadone, HTN, Hep C, Depression, presents for near syncope episodes past 3 days. Today felt faint, fell down 5 stairs at home. Denies hitting head, has right side neck pain since fall. Mild pain left upper arm. Denies
other injury.
Denies CP, SOB, abdominal pain. Denies f/c/n/v/d/c.
Bilateral lower leg swelling and pain has gotten worse past week.
No new meds
Prescribed Seroquel 200 mg daily, has been taking only 100 mg daily so she won't fall asleep at work.
Otherwise taking her usual Methadone 155 mg daily
Ezel 300 mg BID
BuSpar 20 mg BID
Paxil 60 mg daily
Has bilateral LE swelling, PCP aware and ordered US but she never got them done. Denies CP, SOB, Abd pain.
Past History
Past History
ED Past Medical History: Psychiatric (History of drug abuse/ methadone maintenance program. Depression.) and Other (Hepatitis C)
ED Past Surgical History:
Social History
Tobacco: Smoker
Alcohol: None
Drug: IVDA
Personal: Single
Living: with family (she and 10 yo daughter live with her boyfriend's mother, boyfriend's sister just moved in 1 month ago, disrupting the home. Boyfriend just out of correction, provided her Fentanyl)
Employment: Employed
Family History
Family History: Other (Noncontributory)
Review of Systems
Review of Systems
Allergies reviewed?: Yes
All Other Systems: ROS reviewed and negative except as documented in HPI and ROS
Constitutional: Denies fever
Respiratory: Denies trouble breathing
Cardiac: Reports other (several episodes near syncope past 3 days); Denies chest pain or palpitations
ABD/GI: Denies abdominal pain, nausea, vomiting, diarrhea, constipated or anorexia
: Denies dysuria, frequency or difficulty voiding
Phy Exam
Physical Exam
Physical Exam:
GENERAL: No acute distress. A&Ox3.
CONSTITUTIONAL: Afebrile.
EYES: PERRL, conjunctivae normal
Neck: Supple
ENMT: moist mucus membranes, Pharynx nl
RESPIRATORY: Regular respirations, nonlabored, lungs clear.
CARDIOVASCULAR: Regular rate and rhythm, no murmurs, no rubs. Pedal pulses 2/4. Feet warm.
GI: Soft, nontender, normal BS
MUSCULOSKELETAL: No spinal bony tenderness. Full ROM UE's, mild tenderness ST of left UE, no bony tenderness to extremities. No calf tenderness or warmth. Both legs from knees to ankles are edematous, discolored with ecchymotic areas, Moves with
ease. Well perfused.
SKIN: Warm, dry, pink
PSYCH: Normal mood and affect. Well kept, interactive and appropriate
NEUROLOGIC: Awake, alert and oriented. No focal neurological deficits
Course
Orders/Labs/Results
Orders:
Orders
01/19/24 10:31
EKG [Electrocardiogram (*1)] Urgent
Reason for Study: Syncope
EKG- Treatment ONCE
01/19/24 11:40
Complete Blood Count/With Diff Urgent
01/19/24 12:17
Comprehensive Metabolic Panel Urgent
HCG, Serum Qualitative Screen Urgent
Comment: ADD ON
Magnesium Urgent
01/19/24 13:21
Orthostatic VS- Treatment ONCE
01/19/24 13:26
US Periph Venous LOWER Ext Odell Urgent
Comment:
Reason For Exam: swelling both legs
01/19/24 13:35
Add On- LAB Urgent
Tests Added?: Serum qualitative HCG
01/19/24 15:45
Piperacillin/Tazo 3.375 Gram [Zosyn] 3.375 gram in 50 ml IV NOW
01/19/24 17:30
Admit/Transfer Patient As Directed
Co-Sign Provider:
Level of Care: Observation services
Assign to:: Telemetry
Physician / Group: Mary Cardoso
Diagnosis: lower extremity cellulitis, near syncope
Reason for Telemetry: Syncope
Date to Stop Telemetry: 01/21/24
Time to Stop Telemetry: 11:00
PRN Pain Medication Management As Directed
May give lesser potent ordered pain med per pt: Yes
preference::
Protocol:: Medication orders for pain may be administered in a
manner that supports deferring to patient preference
when the pt is:
- Requesting an ordered lesser potent pain medication.
Least to most potent pain medications are defined
as: acetaminophen < NSAID < tramadol < opioids
(morphine, oxycodone, hydromorphone).
- Requesting a lesser dose of the same medication IF
ORDERED.
- Requesting a less intrusive route of administration
if both routes are prescribed by the provider (PO <
IV).
01/19/24 17:31
Code Status As Directed
Resuscitation Status: Full Code
01/19/24 17:59
Ezel Stat
Blood Culture Q30M
NILESH Source: Blood/Venous
Specimen Description:
Blood Culture Q30M
NILESH Source: Blood/Venous
Specimen Description:
01/21/24 11:00
DC Protocol for Telemetry ONCE
Abnormal Lab Results
01/19/24 01/19/24
11:40 12:17
WBC 11.0 H 10^3/uL
(4.8-10.8)
RBC 3.76 L 10^6/uL
(4.20-5.40)
Hgb 11.9 L g/dL
(12.0-16.0)
Hct 34.6 L %
(37.0-47.0)
MCH 31.6 H pg
(27.0-31.0)
Abs Immat Gran (auto) 0.1 H 10^3/uL
(0-0.05)
Absolute Neuts (auto) 7.8 H 10^3/uL
(1.4-6.5)
Carbon Dioxide 31 H mmol/L
(22-30)
Glucose 112 H mg/dl
(70-99)
Alkaline Phosphatase 169 H U/L
(38-126)
01/19/24 11:40
01/19/24 12:17
Vital Signs
Initial and Last Documented VS:
Initial Vital Signs
Temp Pulse Resp BP Pulse Ox
97.5 F 64 18 122/71 98
01/19/24 10:41 01/19/24 10:41 01/19/24 10:41 01/19/24 10:41 01/19/24 10:41
Last Documented Vital Signs
Temp Pulse Resp BP Pulse Ox
99.0 F 57 10 145/78 98
01/19/24 18:00 01/19/24 18:05 01/19/24 18:05 01/19/24 18:00 01/19/24 18:00
MDM/Problems Addressed
Differential Diagnosis Includes:
dehydration, postural dizziness/orthostatic hypotension, vasovagal, medication side effect
Cellulitis
MDM/Problems Addressed:
43 yo female with h/o on Methadone, HTN, Hep C, Depression, presents for near syncope episodes past 3 days. Today felt faint, fell down 5 stairs at home. Denies hitting head, has right side neck pain since fall. Mild pain left upper arm. Denies
other injury.
Denies CP, SOB, abdominal pain. Denies f/c/n/v/d/c.
No new meds
Prescribed Seroquel 200 mg daily, has been taking only 100 mg daily so she won't fall asleep at work.
Otherwise taking her usual Methadone 155 mg daily
Ezel 300 mg BID
BuSpar 20 mg BID
Paxil 60 mg daily
Former IV drug abuse, used her legs as well as other places. Both lower legs discolored she states chronically from when she used to shoot up
Has been clean for nearly a year.
Her leg swelling and pain has gotten worse past week.
Has bilateral LE swelling, PCP aware and ordered US but she never got them done. Denies CP, SOB, Abd pain.
Describes more near syncopal episodes rather than LOC.
EKG: NSR with prolonged QTc
12:30 p.m.
CBC unremarkable
CMP unremarkable
Orthostatics negative
4:35 PM:
US bilateral LE radiology report read: No evidence of DVT
Plan: Admit: bilateral lower leg cellulitis, near syncope
Hospitalist notified of admission
*Critical Care Note
Total Time (30-74mins, 75-104mins- exclusive of procedures): Not Applicable
ED Attending Note
-
Portions of this chart may have been created with voice recognition software.� Occasional wrong word or��sound alike� substitutions may have occurred due to the inherent limitations of voice recognition software.
Discharge Plan
Departure
Patient Disposition: Admit
Date of Disposition: 01/19/24
Time of Disposition: 15:46
Admit to: Med/Surg
Presentation/result/management discussed w/ accepting MD/DO: Hospitalist
Condition: Good
Discharge Problem:
Bilateral lower leg cellulitis, Near syncope
Interventions
Interventions:
*Risk Screen - Suicide Last Done: 01/19/24 11:47
*General Assessment Last Done: 01/19/24 11:47
*Neglect/Abuse Screening Last Done: 01/19/24 11:47
ED- Fall Risk Assessment Last Done: 01/19/24 11:47
ED- Cardiac Assessment Last Done: 01/19/24 11:47
ED- Neurological Assessment Last Done: 01/19/24 11:47
[2024-01-19 14:22] LABS: HCG, Serum Qualitative Screen Negative
[2024-01-19] MEDS: ZOSYN 50 IV ×2 (15:50→23:33)
--- NOTE | 2024-01-19 16:51 | HPS.HSE ---
Family Physician
-
Family Physician: Eduardo Croft MD
Chief Complaint
-
Syncope
History of Present Illness
Patient is a 43-year-old female with past medical history significant for hypertension, hepatitis C, depression and hx IV drug use on methadone who presented to [facility] for evaluation of near syncope over past 3 days. Patient states that today
she felt faint and fell down 5 stairs at home. Denies hitting her head, does complain of left sided neck pain and left upper arm pain since fall. Denies any other injuries. Patient also complains of no onset 'twitching' throughout body that happens
intermittently. Patient denies any fever, chills, cough, chest pain, shortness of breath, nausea, vomiting, constipation, diarrhea or urinary symptoms.
Medical History
Past Medical History
Past Medical History: Reports Other
Additional Past Medical History:
hypertension
hepatitis C
depression
hx IV drug use on methadone
Past Surgical History: Reports Other
Additional Past Surgical History:
nerve graft
Social History
Tobacco: Smoker (5 cigarettes per day)
Alcohol: None
Drug: Former User
Personal: Single
Living: With Roomate
Family History
Family History: Not pertinent
Allergies / Home Medications
Allergies reflects when Allergies were last updated in [facility].
Home Medications with original date entered in [facility]
Allergy/Medication List:
Allergies
Allergy/AdvReac Type Severity Reaction Status Date / Time
No Known Allergies Allergy Verified 01/19/24 10:48
Home Medications
methadone 10 mg/mL oral concentrate (Methadose) 155 mg PO DAILY opioid use disorder 09/18/21
buspirone 10 mg tablet 20 mg PO BID 12/28/23
lithium carbonate 300 mg capsule 300 mg PO BID 12/28/23
paroxetine HCl 30 mg tablet (Paxil) 30 mg PO BID 12/28/23
quetiapine 200 mg tablet (Seroquel) 200 mg PO HS 12/28/23
Review of Systems
-
History Source: Patient
Constitutional: Reports No Symptoms
EENT: Reports No Symptoms
Respiratory: Reports No Symptoms
Cardiac: Reports No Symptoms
Abdomen/GI: Reports No Symptoms
: Reports No Symptoms
Musculoskeletal: Reports Muscle Pain (Left neck and upper left arm)
Skin: Reports No Symptoms
Neurological: Reports Dizzy and Other (near syncope)
Endocrine: Reports No Symptoms
Hematologic/Lymphatic: Reports No Symptoms
Psych: Reports No Symptoms
Physical Exam
Vital Signs
Vital Signs
Temp Pulse Resp BP Pulse Ox
98 F 55 10 118/69 96
01/19/24 16:00 01/19/24 16:00 01/19/24 16:00 01/19/24 16:00 01/19/24 16:00
Physical Exam
General: Well Developed, Well Nourished, No Apparent Distress, Comfortable and Conversant
HEENT: NormoCephalic, Moist mucous membranes, Atraumatic, [place] Conjunctivae, Nose Appears Normal and Ears Appear Normal
Respiratory: Clear and Non Labored Respirations; No Wheezes, Rales, Rhonchi or Crackles
Cardiac: S1/S2, Regular Rhythm and Bradycardia; No Murmur, Rub or Gallop
GI: Soft, Non Tender, Non Distended and Normal Bowel Sounds; No Organomegaly
Rectal: Deferred by Provider
Genito-urinary: Deferred by me
Musculoskeletal: No Clubbing, No Cyanosis and No Edema
Skin: Warm and IV/Catheter Site; No Rash
Neuro: Awake, AO x 3 and Nonfocal/grossly intact
Hematologic/Lymphatic: No Lymphadenopathy
Psych: Calm and Intact Judgment/Insight
Laboratory Results
-
01/19/24 11:40
12/01/24 12:17
Laboratory Results
Total Bilirubin 0.4 mg/dl (0.2-1.3) 01/19/24 12:17
AST 34 U/L (14-36) 01/19/24 12:17
ALT 24 U/L (0-35) 01/19/24 12:17
Alkaline Phosphatase 169 U/L (38-126) H 01/19/24 12:17
Data Reviewed
-
Ultrasound: Report Reviewed by me (BLLE: No evidence of deep venous thrombosis of the lower extremities bilaterally.)
Medical Tests (Nuc Med, Echo, EKG etc): Report Reviewed by me (EKG: NORMAL SINUS RHYTHM, PROLONGED QTc)
Lab Data: Labs Reviewed by me (WBC 11.0, )
Impression/Plan
-
IMPRESSION/PLAN:
#Bilateral lower extremity cellulitis
bilateral lower extremities with edema, redness and warmth
chronic decolorization present
Hx IVDA
- Admit Telemetry for observation
- IV antibiotics Vanco and Zosyn
#Near syncope
multiple episodes of near syncope, denies happening with change in position and has new onset 'twitching' throughout body
no s/s of endocarditis
- Admit to Telemetry for observation
- check blood cultures
- Orthostatic VS
- check lithium level
#benign hypertension
- stable
- Monitor VS
#hepatitis C
Hx of IVDA
- encouraged continued abstinence from IVDA
- follow up out patient
#depression
- continue buspirone, lithium, paroxetine
Code status: Full Code
DVT Prophylaxis: Lovenox Sq
--- NOTE | 2024-01-19 17:48 | W.PN.UPDATE ---
Update Note
Progress Note Update
This is an addendum to the H&P written by Tiesha Valera on 01/19/2024.� Patient seen and examined independently with PREFABRICATOR.
43-year-old female past medical history of former IV drug use, with prior fentanyl/xylazine use most recently a year ago currently on methadone, hepatitis C, prior lower right lower extremity wounds, hypertension, depression presenting for near
syncopal episodes for the past 3 days resulting in falls with neck/arm pain.� Also with bilateral lower extremity swelling and pain.
Labs show leukocytosis, venous ultrasound negative for DVT.�
Bilateral lower extremities are more edematous than usual, warm and tender.� There is discoloration of the right lower extremity which is chronic.� Patient with recent wound culture on 12/27 from left thumb growing MRSA.� This has healed.��
Given Zosyn in ER. Switch to vancomycin/Zosyn for now.
Patient had presyncopal episodes associated with twitching.� Orthostatics negative and blood pressure normal.� EKG shows normal sinus rhythm, LVH.� Presyncopal episodes likely vasovagal from cellulitis vs side effect secondary to antipsychotics.� No
signs of endocarditis.� Check lithium level.
[2024-01-19 18:22] LABS: Lithium 0.3 mmol/L (0.6-1.2)
[2024-01-19] MEDS: BUSPAR 20 MG PO (20:25)
[2024-01-19] MEDS: ESKALITH REGULAR RELEASE 300 MG PO (20:25)
[2024-01-19] MEDS: VANCOCIN 540 MG IV (20:26)
[2024-01-19] MEDS: SEROQUEL 200 MG PO (20:31)
--- NOTE | 2024-01-19 22:55 | PHA.VAN.IN ---
Assessment
- Assessment
Renal Function: Appears similar to baseline
Maximum Temperature: 99
Minimum Temperature: 97.5
Concomitant Antimicrobials: ZOSYN 3.375 MG Q6H
Historical Micro: History of MRSA infection (CULTURES FROM .)
- Previous Dosing Experience
Previous Regimen: VANCOMYCIN 750 MG Q8H
Date of Regimen: 10.20.2017
AUC Dosing Plan
- Dosing Variables
Dosing Weight (kg): 90.9 KG
Dosing CrCl (ml/min): 138
Vd coefficient (L/kg): 0.7
- Empiric Dosing
Initial / Loading Dose: VANCOMYCIN 2000 MG X 1
Maintenance Regimen: VANCOMYCIN 1250 MG Q8H
Estimated AUC (mcg*h/mL): 525
Estimated Peak (mcg*h/mL): 32
Estimated Trough (mcg/ml): 13.9
Estimated Half Life (H): 5.8
- Monitoring
No levels ordered at this time: CONSIDER ORDERING LEVELS IN THE NEXT FEW DAYS
Pharmacokinetics Vancomycin I
- -
Patient Age: 43
Patient Sex: Female
Vancomycin Day #: 1
Indication: SSTI
Requesting Provider: KLEVER MG
Pertinent Antimicrobial Allergies:
NKDA
Height / Weight:
Height 5 ft 7 in
Actual Weight 90.889 kg
IBW in k.6
Adjusted BW in k.3
Pertinent Past Medical History: WOUND CULTURE ON 12.27 FROM LEFT THUMB GROWING MRSA
- Vital Signs / Lab Results
Temp Pulse Resp BP Pulse Ox
98.0 F 54 18 124/71 96
01/19/24 19:30 01/19/24 19:30 01/19/24 19:30 01/19/24 19:30 01/19/24 19:30
Lab Results - Hematology
01/19/24
11:40
WBC 11.0 H
Lab Results - Chemistry
01/19/24 01/19/24
11:40 12:17
BUN Cancelled 12
Creatinine Cancelled 0.6
Estimated Creat Clear Cancelled
Albumin Cancelled 3.6
[2024-01-20 03:00] VITALS: BP 124/72
[2024-01-20] MEDS: ZOSYN 50 IV ×2 (03:53→09:51)
[2024-01-20] MEDS: VANCOCIN 275 MG IV (06:01)
[2024-01-20 07:25] VITALS: BP 120/66
[2024-01-20] MEDS: PAXIL 60 MG PO (08:07)
[2024-01-20] MEDS: BUSPAR 20 MG PO (08:07)
[2024-01-20] MEDS: ESKALITH REGULAR RELEASE 300 MG PO (08:08)
--- NOTE | 2024-01-20 08:10 | PHANOTE ---
MED REC NOTE- RECALLED [facility] IN [place] AT [phone] FAX [phone]. FAXED OVER MR FORM TO THEM AWHILE FAX BACK
--- NOTE | 2024-01-20 08:34 | PHA.VAN.FU ---
Vancomycin Assessment / Plan
- Assessment
Renal Function: Stable
WBC's are: WNL
In the past 24 hrs, patient has been: Afebrile
Concomitant Antimicrobials: piperacillin/tazobactam
- Dosing Plan
Adjust Regimen to: Vanc 1500mg Q12H starting at 1800
New Regimen Predicts: AUC (509), Peak (34), Trough (11.8)
Patient previously had levels of 9 and 11 on 750mg Q8H in 2018.
However, prior experience > 5 years ago.
Will trial Q12H dosing
- Monitoring Plan
No level(s) ordered at this time: consider levels in next few days
- Follow Up
Pharmacy will continue to follow.
Vancomycin Follow UP
- -
Patient Age: 43
Patient Sex: Female
Vancomycin Day #: 2
Indication: Skin And Soft Tissue
Requesting Provider: Veronica Valera
Pertinent Antimicrobial Allergies:
NKDA
Height / Weight:
Height 5 ft 7 in
Actual Weight 90.889 kg
IBW in k.6
Adjusted BW in k.3
Pertinent Past Medical History: BMI ~31, IV DARRYN (on methadone)
- Vital Signs / Lab Results
Temp Pulse Resp BP Pulse Ox
97.4 F 55 20 120/66 95
01/20/24 07:25 01/20/24 07:25 01/20/24 07:25 01/20/24 07:25 01/20/24 07:25
Lab Results - Hematology
01/19/24
11:40
WBC 11.0 H
Lab Results - Chemistry
01/19/24 01/19/24
11:40 12:17
BUN Cancelled 12
Creatinine Cancelled 0.6
Estimated Creat Clear Cancelled
Albumin Cancelled 3.6
--- NOTE | 2024-01-20 08:48 | CM ---
Per physician patient to be changed to INP status. CM will update patient.
[2024-01-20] MEDS: METHADONE 100 MG/10 ML 155 MG PO (09:19)
[2024-01-20 09:21] LABS: Hemoglobin 11.8 g/dL (12.0-16.0); Mean Corp Hgb Conc. 34.7 g/dL (33.0-37.0); Mean Corpuscular Hgb 31.8 pg (27.0-31.0); Mean Corpuscular Volume 91.6 fL (81.0-99.0); Mean Platelet Volume 9.8 fL (7.4-10.4); Platelet Count 203 10^3/uL (130-400); Red Blood Cell Count 3.71 10^6/uL (4.20-5.40); Red Cell Dist. Width 13.4 % (11.5-14.5); White Blood Cell Count 9.3 10^3/uL (4.8-10.8)
[2024-01-20 09:55] LABS: Blood Urea Nitrogen 10 mg/dl (7-17); Calcium 8.1 mg/dl (8.4-10.2); Carbon Dioxide 28 mmol/L (22-30); Chloride 107 mmol/L (98-107); Estimated Creatinine Clearance 119 ml/min; Glucose 77 mg/dl (70-99); Potassium 3.8 mmol/L (3.5-5.1); Sodium 141 mmol/L (135-145); eGFR > 60.00
[2024-01-20 10:51] LABS: Amphetamines Negative (Negative); Barbiturates Negative (Negative); Benzodiazepines Negative (Negative); Buprenorphine Negative (Negative); Cocaine Negative (Negative); Marijuana Negative (Negative); Methadone Positive (Negative); Methamphetamines Negative (Negative); Opiates Negative (Negative); Phencyclidine Negative (Negative); Tricyclic Antidepressants Positive (Negative)
[2024-01-20 11:39] LABS: Fentanyl, Urine Negative (Negative)
[2024-01-20 11:40] VITALS: BP 111/58
--- NOTE | 2024-01-20 11:40 | CM ---
Patient seen at bedside with physician. Patient admitted as OBS, Form reviewed and signed form placed on chart. Patient plan is for discharge home. Patient living with friend's mother in a 2 story home. patient states she is looking for an
apartment. Patient able to return but needs to have lyft ride home as her ride had a colonoscopy today. CM will arrange for lyft when patient is discharged to [place]. Patient wants to go to [facility] and will walk home from there.
Patient PCP is Dr. Croft. Patient uses the [facility] in [place]. Patient plan is home with po antibiotics at this time. CM will continue to follow for discharge planning needs.
Plan; home with no needs
--- NOTE | 2024-01-20 11:41 | W.PN.HOSP.TC ---
Today's Communication/Plan
-
d/c
Assessment / Plan
Assessment / Plan
pt is a 43 year old female
Bilateral lower extremity cellulitis--unusual to be bilateral--pt stopped using 1 year ago--more likely chronic venous stasis changes--change vanco/zosyn to doxycyline-- OK for d/c
Hx IVDA--clean x 1 year per pt
Near syncope--multiple episodes of near syncope, denies happening with change in position and has new onset 'twitching' throughout body--no s/s of endocarditis --cultures neg
essential hypertension--cont meds
hepatitis C--Hx of IVDA-- follow up out patient
depression - continue buspirone, lithium, paroxetine
Code status: Full Code
DVT Prophylaxis: Lovenox Sq
Anticipated Discharge: Today
Subjective/Interval History
-
Date of Service: January 20, 2024
pt better than yesterday--says legs are chronic
Objective Data
-
Labs:
Laboratory Results
01/20/24
08:55
WBC 9.3
Hgb 11.8 L
Hct 34.0 L
Plt Count 203
Sodium 141
Potassium 3.8
Chloride 107
Carbon Dioxide 28
BUN 10
Creatinine 0.7
Glucose 77
Calcium 8.1 L
Vital Signs:
max temp for 24 hours
01/19/24
18:00
Temp 99.0 F
Vital Signs
Temp Pulse Resp BP Pulse Ox
97.4 F 55 20 120/66 95
01/20/24 07:25 01/20/24 07:25 01/20/24 07:25 01/20/24 07:25 01/20/24 07:25
I&O
1201/20/24 01/21/24
06:59 06:59 06:59
Intake Total 360 / 360
Balance 360 / 360
Review of Systems
-
All other systems: Reviewed and negative
Physical Exam
-
General: Well Developed, Well Nourished and No Apparent Distress
HEENT: Normocephalic and Atraumatic
Respiratory: Clear to Auscultation; Negative Wheezes or Rhonchi
Cardiac: Regular Rhythm and S1/S2; Negative Murmur
GI: Soft, Nontender, Nondistended and Normal Bowel Sounds
Musculoskeletal: Other (chronic venous stasis discoloration bilaterally--2+ LE edema bilaterally--faint redness on right leg)
Psych: Calm
--- NOTE | 2024-01-20 14:05 | W.DCSUMMARY ---
Discharge Summary
Discharge Data
Date of Admission: 01/19/24
Date of Discharge: 01/20/24
-
Pending Results: No
Hospital Course
Primary care physician : Eduardo Croft
Principal Discharge diagnosis : Bilateral chronic venous stasis changes with possible superimposed lower extremity cellulitis
Chronic Discharge diagnosis : History of intravenous drug abuse, near syncope, essential hypertension, history hepatitis C, depression
Hospital Course : Patient was a 43-year-old female with a history of essential hypertension, hepatitis C, depression, and a history of IV drug use which she states she has not used in over a year who presented with near syncope for 3 days. She
stated that she felt faint and 'fell down 5 stairs at home'. She denied hitting her head. She also complained of 'twitching' throughout her body that happens intermittently. She denied any symptoms. Workup in the emergency department found her
to have bilateral lower extremity cellulitis and patient was admitted.
Problem #1: Bilateral chronic venous stasis changes with the possibility of superimposed lower extremity cellulitis. Patient states that she has been clean for about a year from IV drug abuse. She states that she has chronic discoloration of her
lower extremities. Patient did have an elevated white count of 11 on admission which has improved to 9.3 on the day of discharge. There may be some faint redness residual on her right lower extremity. She was started on vancomycin and Zosyn.
This has been changed to doxycycline for another 7 days as an outpatient. She is stable for discharge at this time.
Problem #2: All other medical issues. These include History of intravenous drug abuse, near syncope, essential hypertension, history hepatitis C, depression. These medical issues were stable during her hospitalization. Medications were continued
as able.
Patient is stable for discharge home at this time. If there are any questions regarding this dictation or her hospital stay, please not hesitate to call. Our office number is [phone].
Discharge Plan
-
Patient Disposition: Home (Routine Discharge)
Discharge Diagnosis/Procedures: Bilateral chronic venous stasis changes to lower extremities with perhaps mildly superimposed cellulitis, history of IV drug abuse, near-syncope, essential hypertension, hepatitis C, depression
Condition: Good
Diet: As tolerated
Activity: As tolerated
Driving Restrictions: As prior to admission
Bathing Restrictions: None
Referrals:
Eduardo Croft MD [Family Provider] - in less than 1 week
Prescriptions:
New
doxycycline monohydrate 100 mg capsule
100 mg PO BID Qty: 14 0RF
Continued
methadone [Methadose] 100 MG/10 ML concentrate
155 mg PO DAILY
Patient Comments:
called [facility] to [facility]onay dose @[phone]/19/24 patient has take home doses
quetiapine [Seroquel] 200 mg Tablet
200 mg PO HS
lithium carbonate 300 mg Capsule
300 mg PO BID
paroxetine HCl [Paxil] 30 mg Tablet
30 mg PO BID
buspirone 10 mg Tablet
20 mg PO BID
Discharge Orders:
Discharge Patient (As Directed); Ordered 01/20/24
Ordered By: Elba Cochran
Discharge Date and Time
Discharge Date/Time: 01/20/24 13:39
Print Language: JAPANESE
== END 2024-01-20 13:39 | disposition home or self-care (01) ==
LOC: 3 WEST ACU 18:13
PROVIDERS: Nurse Practitioner Family; Registered Nurse; ADMITTING PHYSICIAN Hospitalist; ATTENDING PHYSICIAN Internal Medicine; EMERGENCY PHYSICIAN Student in an Organized Health Care Education/Training Program; FAMILY PHYSICIAN Internal Medicine
DX: R55 Syncope and collapse (principal); I87.8 Other specified disorders of veins; D72.829 Elevated white blood cell count, unspecified; W10.8XXA Fall (on) (from) other stairs and steps, initial encounter; Y93.01 Activity, walking, marching and hiking; Y92.008 Other place in unspecified non-institutional (private) residence as the place of occurrence of the external cause; F11.20 Opioid dependence, uncomplicated; F32.A Depression, unspecified; I10 Essential (primary) hypertension; R94.31 Abnormal electrocardiogram [ECG] [EKG]; F17.210 Nicotine dependence, cigarettes, uncomplicated; R25.3 Fasciculation; R60.9 Edema, unspecified; M79.89 Other specified soft tissue disorders; B19.20 Unspecified viral hepatitis C without hepatic coma; Z86.19 Personal history of other infectious and parasitic diseases; Z63.0 Problems in relationship with spouse or partner
CPT/HCPCS: 80048; 80053; 80178; 80306; 80307; 83735; 84703; 85025; 85027; 87040; 87070; 87147; 93005; 93970; 96365; 99285; G0378